=== PATIENT | female | born 1945 | race Caucasian/White ===

== ENCOUNTER → 2019-01-26 | Outpatient (REF) | payer MEDICARE, OTHER | LOC: EEVIPCON 15:43 → M LAB REF 15:43 | PROVIDERS: ATTEND Nurse Practitioner Family | DX: L08.9 Local infection of the skin and subcutaneous tissue, unspecified (principal) ==

== ENCOUNTER 2019-09-22 15:58 | Emergency (ER) | payer MEDICARE, OTHER ==
[~2019-09-22] VITALS: Ht 162.6 cm; Wt 75.6 kg
[2019-09-22] MEDS ORDERED: SERT-138 (16:07)
[2019-09-22] MEDS ORDERED: ATOR1TAB21 (16:07)
[2019-09-22] MEDS ORDERED: FOSI40TA3 (16:07)
[2019-09-22] MEDS ORDERED: SYNT100T (16:07)
[2019-09-22] MEDS ORDERED: NS 500 ML IV ONE (17:30)
[2019-09-22] MEDS ORDERED: ISOVUE-370 76% 100ML VIAL (Q9967) As Ordered ONE (17:41)
--- NOTE | 2019-09-22 18:33 | REPVR ---
PROCEDURE INFORMATION: Exam: CT Angiography Chest With Contrast Exam date and time: 09/22/2019 5:46 PM Age: 74 years old Clinical indication: Shortness of breath; Additional info: SOB TECHNIQUE: Imaging protocol: Computed tomographic angiography of the chest with intravenous contrast. 3D rendering: MIP and/or 3D reconstructed images were created by the technologist. Radiation optimization: All CT scans at this facility use at least one of these dose optimization techniques: automated exposure control; mA and/or kV adjustment per patient size (includes targeted exams where dose is matched to clinical indication); or iterative reconstruction. Contrast material: ISOVUE 370; Contrast volume: 75 ml; Contrast route: IV; COMPARISON: CR CHEST 2 VIEW 09/22/2019 9:55 AM FINDINGS: Pulmonary arteries: Limited evaluation of the distal pulmonary arterial branches due to motion artifact. No filling defect in the main pulmonary arteries or the primary or secondary order pulmonary arterial branches. The main pulmonary arterial trunk is normal in caliber. Aorta: Mild atherosclerotic change of the thoracic aorta. Lungs: Mild tree in bud opacities in the right middle lobe. Mild patchy groundglass opacity in both lower lobes. Noncalcified 2 mm right upper lobe pulmonary nodule (series 502 image 44). Noncalcified 3 mm right upper lobe pulmonary nodules (series 502 image 46). Pleural space: Unremarkable. No pneumothorax. No pleural effusion. Heart: Unremarkable. No cardiomegaly. No pericardial effusion. Gallbladder and bile ducts: There has been a cholecystectomy. Kidneys and ureters: 10 mm left renal cyst. Lymph nodes: Unremarkable. No enlarged lymph nodes. Bones/joints: Bilateral sternoclavicular joint DJD. Degenerative change of the spine. Postsurgical change of the spine. Soft tissues: Unremarkable. IMPRESSION: 1. No central pulmonary embolism. Motion artifact limits evaluation of the distal pulmonary arteries. 2. Mild right middle lobe small airways disease. 3. Mild edema or pneumonitis in the lower lobes. 4. Noncalcified 2 mm and 3 mm nodules in the right lung. Recommend comparison with any prior CT examinations that are available. If none are available, recommend followup according to Fleischner criteria. Fleischner society recommendations for followup and management of pulmonary nodules in adults detected incidentally on screening CT (2017): Less than or equal to 6 mm (solitary or multiple): Low risk patients- no followup needed. High risk patients- optional CT in 12 months. 6-8 mm nodule (solitary): Low-risk patients- CT at 6-[address] at 18-24 months. High risk patients- CT at 6-12 months, then CT at 18-24 months. 6-8 mm nodule (multiple): Low-risk patients- CT at 3-[address] at 18-24 months. High risk patients- CT at 3-6 months, then CT at 18-24 months. >8 mm (solitary): Low-risk patients- consider CT, PET/CT, or tissue sampling at 3 months. High-risk patients- same as for low-risk patients. >8mm (multiple): Low-risk patients - CT at 3-6 months, then at 18-24 months. High-risk patients - same as for low risk patients. Electronically signed by: Jenna Dickson On 09/22/2019 18:32:53 PM
[2019-09-22] MEDS ORDERED: IPRATROPIUM 0.5MG/ALBUTEROL 2.5MG INH SOL UD 3ML (DUONEB)(J7620) NEB ONE (19:00)
[2019-09-22] MEDS ORDERED: LevoFLOXacin IV 750 MG in IV 1 EA IV ONE (19:00)
--- NOTE | 2019-09-22 19:00 | ED PDOC ---
Post-Departure Follow-Up dr dee fxed formal report of cta chest for fu Eunice Wagner MD Sep 22, 2019 19:00
[2019-09-22 19:05] LABS: INR 1.27; PROTHROMBIN TIME 15.6 SECONDS (11.8-14.0)
[2019-09-22 19:06] LABS: PARTIAL THROMBOPLASTIN TIME 37.5 SECONDS (25.0-38.4)
[2019-09-22 19:26] LABS: ALBUMIN 3.1 GM/DL (3.2-5.2); BILIRUBIN,DIRECT 0.4 MG/DL (0.0-0.2); BILIRUBIN,TOTAL 1.3 MG/DL (0.2-1.0); C REACTIVE PROTEIN QUANTITATIV 18.9 MG/DL (0.00-0.30); CREATININE FOR GFR 1.06 MG/DL (0.55-1.30); GLOMERULAR FILTRATION RATE 53.7 (>39); POTASSIUM SERUM 3.8 MEQ/L (3.5-5.1); TOTAL PROTEIN 6.3 GM/DL (6.4-8.2)
[2019-09-22] MEDS ORDERED: LEVA750T7 PO (22:03)
[2019-09-22] MEDS ORDERED: VENTAER INH (22:03)
[2019-09-22 22:29] VITALS: BP 131/59
--- NOTE | 2019-09-23 17:58 | ECGEPIP ---
[facility] - ED Test Date: 2019-09-22 Pat Name: TATI POPE Department: Room: - Gender: Female Feed [employer]ender: CAROLE : 1945 Requested By: RADHA JONES PA-C Order Number: [id number] Reading MD: Beau Harmon Measurements Intervals [place] Rate: 84 P: -58 CO: 123 QRS: 10 QRSD: 92 T: -11 QT: 370 QTc: 438 Interpretive Statements ECTOPIC ATRIAL RHYTHM NONSPECIFIC ST & T-WAVE ABNORMALITY BASELINE ARTIFACT AFFECTS INTERPRETATION NO PRIORS FOR COMPARISON Electronically Signed on 09-23-2019 17:57:47 EST by Beau Harmon
== END 2019-09-22 22:18 | disposition home or self-care (01) ==
LOC: M ED 15:58
DX: J18.9 Pneumonia, unspecified organism (principal); J20.9 Acute bronchitis, unspecified; J81.0 Acute pulmonary edema; R91.8 Other nonspecific abnormal finding of lung field; R94.31 Abnormal electrocardiogram [ECG] [EKG]; I10 Essential (primary) hypertension; E78.5 Hyperlipidemia, unspecified; E03.9 Hypothyroidism, unspecified; F41.9 Anxiety disorder, unspecified; Z79.51 Long term (current) use of inhaled steroids; Z79.899 Other long term (current) drug therapy
CPT/HCPCS: 36415; 71046; 71275; 80047; 80048; 80076; 83880; 85025; 85379; 85610; 85652; 85730; 86140; 93005; 96361; 96365; 96366; 99284; J1956; Q9967

== ENCOUNTER → 2019-09-22 | Outpatient (CLI) | payer MEDICARE, OTHER ==
[~2019-09-22] MED LIST: ATOR1TAB21; FOSI40TA3; LEVA750T7 PO; SERT-138; SYNT100T; VENTAER INH
--- NOTE | 2019-09-22 10:12 | REP ---
Clinical: Cough and shortness of breath . Comparison: None . Technique: PA and lateral. Findings: The mediastinum and cardiac silhouette are normal. The lung harris are clear and without acute consolidation, effusion, or pneumothorax. The skeletal structures are intact and normal. Impression: 1. No acute cardiopulmonary process. Electronically Signed by Liu Stratton MD 09/22/2019 10:03 A
[2019-09-22 14:53] LABS: BASO % 0.3 % (0.0-1.0); HEMATOCRIT 40.2 % (36.0-47.0); HEMOGLOBIN 13.2 g/dl (12.0-15.5); LYMPH # 0.8 10^3/uL (1.5-5.0); LYMPH % 6.6 % (24.0-44.0); MEAN CORPUSCULAR HEMOGLOBIN 31.7 pg (27.0-33.0); MEAN CORPUSCULAR HGB CONC 32.8 g/dl (32.0-36.5); MEAN CORPUSCULAR VOLUME 96.4 fl (80.0-96.0); MONO % 8.9 % (0.0-5.0); NEUTROPHILS # 9.8 10^3/uL (1.5-8.5); NEUTROPHILS % 83.7 % (36.0-66.0); PLATELET COUNT, AUTOMATED 187 10^3/uL (150-450); RED BLOOD COUNT 4.17 10^6/uL (4.00-5.40); WHITE BLOOD COUNT 11.7 10^3/uL (4.0-10.0)
== END ==
LOC: M WUC 09:44
PROVIDERS: ATTEND Physician Assistant
DX: J20.9 Acute bronchitis, unspecified (principal); R06.02 Shortness of breath

== ENCOUNTER → 2019-10-19 | Outpatient (REF) | payer MEDICARE, OTHER | LOC: M LAB REF 16:12 | PROVIDERS: ATTEND Internal Medicine | DX: J18.1 Lobar pneumonia, unspecified organism (principal) ==

== ENCOUNTER → 2020-07-10 | Outpatient (REF) | payer MEDICARE, OTHER | LOC: M LAB REF 09:48 | PROVIDERS: ATTEND Radiology Diagnostic Radiology | DX: N60.32 Fibrosclerosis of left breast (principal) ==

== ENCOUNTER → 2021-01-08 | Outpatient (CLI) | payer MEDICARE, OTHER ==
--- NOTE | 2021-01-08 14:53 | REP ---
INDICATION: 6 MO F/U,RT BREAST LESION. COMPARISON: 07/10/2020 TECHNIQUE: Ultrasonographic images over a previous biopsy or site were obtained. FINDINGS: A surgical biopsy clip is noted. There are no abnormalities. IMPRESSION: ACR category 2. <Electronically signed by Jamison Frazier > 01/08/21 1026
== END ==
LOC: M WHC 08:54
PROVIDERS: ATTEND Internal Medicine
DX: R92.2 Inconclusive mammogram (principal)

== ENCOUNTER → 2021-02-27 | Outpatient (CLI) | payer MEDICARE, OTHER ==
[~2021-02-27] MED LIST changes: +ISOVUE-370 76% 100ML VIAL ONE
--- NOTE | 2021-02-27 12:02 | REP ---
INDICATION: F/U PULMONARY NODULES. COMPARISON: 08/29/2020, 09/22/2019 TECHNIQUE: A bolus of 75 mL Isovue 370 scanning through the chest with coronal and sagittal reconstructions. FINDINGS: The right lower lobe in the as ago esophageal recess is the ill-defined patchy density without nodules as on the previous study in August. 2 mm nodule the lateral basal segment right lower lobe on image 66 is unchanged few other scattered tiny nodules in the 2-3 mm range in both lungs again seen no new nodules, pleural thickening, pleural effusion, pleural based mass, acute infiltrate or pneumothorax/pneumomediastinum. The heart is not enlarged. There is no pericardial thickening or effusion. The aorta is without aneurysm or dissection and has some calcifications the arch. Main, right and left pulmonary arteries in the mediastinum are without filling defects. No pathologic sized mediastinal, hilar, axillary or supraclavicular adenopathy. Sternum manubrium, clavicles, humeral heads, scapulae and visualized ribs were without acute finding. The C6 through T1 anterior cervical fusion with the plate and screw hardware again seen and intact. Some minimal thoracic spondylosis with marginal osteophytes and no acute compression deformity. Appearance is unchanged. Upper abdomen the hiatal hernia. Portions of liver, spleen, adrenal glands, pancreas and upper poles kidneys unremarkable. Prior cholecystectomy. IMPRESSION: 1. Stable the CT with a few scattered tiny lung nodules. I do not see a 4 mm nodule discretely on today's study in the lower lobe on the right. There are bilateral 2-3 mm scattered nodules unchanged. 2. Heart, mediastinal structures, bony thorax and upper abdominal structures visible without acute abnormality. Stable exam. <Electronically signed by Simone Nicolas > 02/27/21 [id number]
== END ==
LOC: M PLAIMG 10:41
PROVIDERS: ATTEND Internal Medicine
DX: R91.1 Solitary pulmonary nodule (principal)
CPT/HCPCS: 71260; Q9967

== ENCOUNTER → 2021-06-10 | Outpatient (CLI) | payer MEDICARE, OTHER ==
[~2021-06-10] MED LIST changes: -ISOVUE-370 76% 100ML VIAL ONE
--- NOTE | 2021-06-10 13:10 | DEXAMM ---
INDICATION: [facility] DISRD OF BONE DENSITY AND STRUCTURE. COMPARISON: 06/04/2018 as well as other prior exams. TECHNIQUE: Bone density was measured using dual-energy x-ray absorptiometry (DEXA). FINDINGS: AP SPINE L1-L4 BMD 1.358 g/cm2 Young Adult T-Score 1.5 Age Matched Z-Score 3.3. LT FEMUR, TOTAL BMD 0.936 g/cm2 Young Adult T-Score -0.6 Age Matched Z-Score 1.3. LT NECK BMD 0.852 g/cm2 Young Adult T-Score -1.3 Age Matched Z-Score 0.7. RT FEMUR, TOTAL BMD 0.905 g/cm2 Young Adult T-Score -0.8 Age Matched Z-Score 1.1. RT NECK BMD 0.822 g/cm2 Young Adult T-Score -1.6 Age Matched Z-Score 0.5. IMPRESSION: There is normal bone density of the spine. There is low bone density of the left hip. There is low bone density of the right hip. The density of the spine has increased 5.5% since the initial exam on 07/22/2001. The density of the spine decreased 1.2% since most recent exam on 06/04/2018. The density of the left hip has decreased 20.9% since initial exam on 07/22/2001. The density of the left hip has decreased 4.3% since most recent exam on 06/04/2018. The density of the right hip has decreased 19.4% since the initial exam on 07/22/2001. The density of the right hip has decreased 6.0% since the most recent exam on 06/04/2018. FOLLOW-UP: Recommendation for the next bone density exam: 2 years. <Electronically signed by Jose Antonio Dhaliwal > 06/10/21 [id number]
--- NOTE | 2021-06-10 13:35 | REPMRS ---
Patient History The patient states she has not had a clinical breast exam in over a year. Family history of breast cancer at age 53 in mother. Took hormonal contraceptives for 1 year. Took estrogen for 8 years. Tomosynthesis is performed. [place] breast density is b. [facility] lifetime risk of breast cancer 5.0%. Patient states no breast complaints today. Patient has signed MRS History Sheet. Digital Woman Screen Mammo: June 10, 2021 - Exam #: [id number] Bilateral CC and MLO view(s) were taken. Technologist: Danette Hoffmann, Technologist Prior study comparison: June 03, 2017, digital woman screen mammo performed at [facility]. May 23, 2016, digital woman screen mammo performed at [facility]. FINDINGS: There are scattered fibroglandular densities. There has been no change in the appearance of the mammogram from the prior studies. There is a mild amount of residual fibroglandular tissue which is fairly symmetric. There is no interval development of dominant mass, architectural distortion, or clustered microcalcification suggestive of malignancy. Assessment: BI-RADS/ACR category 1 mammogram. Negative Mammogram. Recommendation Routine screening mammogram in 1 year (for women over age 40). This mammogram was interpreted with the aid of an FDA-approved computer-aided dectection system. Electronically Signed By: Jamison Frazier DO 06/10/21 [id number]
== END ==
LOC: M WHC 10:58
PROVIDERS: ATTEND Internal Medicine
DX: Z12.31 Encounter for screening mammogram for malignant neoplasm of breast (principal); M85.89 Other specified disorders of bone density and structure, multiple sites

== ENCOUNTER → 2021-09-25 | Outpatient (CLI) | payer MEDICARE, OTHER ==
[~2021-09-25] MED LIST changes: -FOSI40TA3; +FOSI40TA59; +ISOVUE-370 76% 100ML VIAL As Ordered ONE
== END ==
LOC: M RAD 11:04
PROVIDERS: ATTEND Internal Medicine
DX: R91.1 Solitary pulmonary nodule (principal)
CPT/HCPCS: 71260; Q9967

== ENCOUNTER → 2022-06-11 | Outpatient (CLI) | payer MEDICARE, OTHER ==
[~2022-06-11] MED LIST changes: -ISOVUE-370 76% 100ML VIAL As Ordered ONE
== END ==
LOC: M WHC 11:09
PROVIDERS: ATTEND Internal Medicine
DX: Z12.31 Encounter for screening mammogram for malignant neoplasm of breast (principal)

== ENCOUNTER → 2023-06-18 | Outpatient (CLI) | payer MEDICARE, OTHER | LOC: M WHC 13:30 | PROVIDERS: ATTEND Internal Medicine | DX: Z12.31 Encounter for screening mammogram for malignant neoplasm of breast (principal) ==

== ENCOUNTER → 2024-06-20 | Outpatient (CLI) | payer MEDICARE, OTHER | LOC: M WHC 14:22 | PROVIDERS: ATTEND Internal Medicine | DX: Z12.31 Encounter for screening mammogram for malignant neoplasm of breast (principal); M81.0 Age-related osteoporosis without current pathological fracture ==

== ENCOUNTER → 2024-08-18 | Outpatient (CLI) | payer MEDICARE, OTHER | LOC: M SOG 07:52 | PROVIDERS: ATTEND Physician Assistant | DX: M25.562 Pain in left knee (principal) ==

== ENCOUNTER → 2024-10-06 | Outpatient (CLI) | payer MEDICARE, OTHER | LOC: M SOG 11:11 | PROVIDERS: ATTEND Orthopaedic Surgery | DX: M17.12 Unilateral primary osteoarthritis, left knee (principal) ==

== ENCOUNTER → 2024-10-10 | Outpatient (CLI) | payer MEDICARE, OTHER ==
[2024-10-10 12:44] LABS: BASO % 0.5 % (0.0-1.0); EOS # 0.1 10^3/uL (0.0-0.5); EOS % 1.6 % (0.0-3.0); HEMATOCRIT 38.7 % (36.0-47.0); HEMOGLOBIN 12.4 g/dl (12.0-15.5); LYMPH % 12.9 % (24.0-44.0); MEAN CORPUSCULAR HEMOGLOBIN 31.4 pg (27.0-33.0); MONO # 0.5 10^3/uL (0.0-0.8); MONO % 6.9 % (2.0-8.0); NEUTROPHILS % 77.7 % (36.0-66.0); PLATELET COUNT, AUTOMATED 463 10^3/uL (150-450); RED BLOOD COUNT 3.95 10^6/uL (4.00-5.40); WHITE BLOOD COUNT 7.7 10^3/uL (4.0-10.0)
[2024-10-10 12:54] LABS: PROTHROMBIN TIME 13.4 SECONDS (12.5-14.5)
[2024-10-10 13:23] LABS: ALBUMIN 3.1 G/DL (3.2-5.2); ALKALINE PHOSPHATASE 81 U/L (35-104); ALT/SGPT 13 U/L (7.0-40); AST/SGOT 11 U/L (<34); BILIRUBIN,TOTAL 0.7 MG/DL (0.3-1.2); BLOOD UREA NITROGEN 18 MG/DL (9-23); CALCIUM LEVEL 9.2 MG/DL (8.3-10.6); CARBON DIOXIDE LEVEL 30 MMOL/L (20-31); CHLORIDE LEVEL 104 MMOL/L (98-107); CREATININE FOR GFR 0.88 MG/DL (0.55-1.30); GLOMERULAR FILTRATION RATE > 60.0 (>32); GLUCOSE, FASTING 128 MG/DL (74-106); POTASSIUM SERUM 4.5 MMOL/L (3.5-5.1); SODIUM LEVEL 139 MMOL/L (136-145); TOTAL PROTEIN 6.5 G/DL (5.7-8.2)
[2024-10-10 13:25] LABS: TOTAL 25(OH) VITAMIN D 73.7 NG/ML (20.0-100.0)
[2024-10-10 13:35] LABS: HEMOGLOBIN A1c 5.9 % (4.0-6.0)
== END ==
LOC: M PLALAB 10:11
PROVIDERS: ATTEND Orthopaedic Surgery
DX: M17.12 Unilateral primary osteoarthritis, left knee (principal); Z79.899 Other long term (current) drug therapy

== ENCOUNTER → 2024-11-30 | Outpatient (CLI) | payer MEDICARE, OTHER | LOC: M RAD 11:11 | PROVIDERS: ATTEND Orthopaedic Surgery | DX: M17.12 Unilateral primary osteoarthritis, left knee (principal) ==

== ENCOUNTER 2024-12-19 11:24 | Observation (INO) | payer MEDICARE, OTHER ==
[~2024-12-19] VITALS: Ht 160 cm; Wt 77.2 kg
[2024-12-19] VITALS (8 sets, daily range): BP systolic 125–140; BP diastolic 56–68; TEMP 97–98; O2SAT 92–97
[2024-12-19] MEDS: REK 50ML SYRINGE IA ONE (06:00)
[~2024-12-19 11:24] MED LIST changes: +ACETAMINOPHEN 1000MG/100ML IV BAG As Ordered ONE; +ATOR40TA75 PO; +CALC500C16 PO; -FOSI40TA59; +FOSI40TA59 PO; +LIDOCAINE 2% 100MG/5ML SDV (FOR ANES.) As Ordered ONE; +METF-838 PO; +ONDANSETRON 4MG 2ML VIAL As Ordered ONE; +PRES1CAP PO; +REK 50ML SYRINGE IA ONE; +SERT50TA29 PO; +SYNT88TA2 PO; +dexmedeTOMIDine (4MCG/ML)200MCG/50ML BTL (PRECEDEX) As Ordered ONE; +fentaNYL 100 MCG/2 ML INJECTION As Ordered ONE; +propofoL 200 MG/20 ML VIAL As Ordered ONE
[2024-12-19] MEDS: LR 1,000 ML IV SCH ×2 (12:30→15:25)
[2024-12-19] MEDS: TRANEXAMIC ACID INJection 1,000 MG in NS 100 ML IV ONE (13:00)
[2024-12-19] MEDS: ceFAZolin SOD 2 GM IV ONCE IV ONE (13:07)
[2024-12-19] MEDS: TRANEXAMIC ACID 100 MG/ML 10ML VIAL As Ordered ONE (13:23)
[2024-12-19] MEDS ORDERED: ePHEDrine SULFATE 25 MG/5 ML(5MG/ML) SYRINGE As Ordered ONE (13:48)
[2024-12-19] MEDS ORDERED: ONDANSETRON 4MG 2ML VIAL IV PRN (15:20)
[2024-12-19] MEDS ORDERED: SENNA 8.6 MG TAB PO PRN (15:20)
[2024-12-19] MEDS ORDERED: oxyCODONE 5MG TAB PO PRN ×2 (15:20)
[2024-12-19] MEDS ORDERED: fentaNYL 100 MCG/2 ML INJECTION IV PRN (15:25)
[2024-12-19] MEDS: oxyCODONE 5MG TAB PO PRN (16:06)
[2024-12-19] MEDS: HYDROMORPHONE HCL 0.5 MG/ 0.5 ML SYRINGE IV PRN (16:07)
[2024-12-19] MEDS: ONDANSETRON 4MG 2ML VIAL IV PRN (16:38)
[2024-12-19] MEDS ORDERED: HOME MED LIST COMPLETE! XX SCH (18:00)
[2024-12-19] MEDS: ACETAMINOPHEN 325 MG TAB PO SCH (18:52)
[2024-12-19] MEDS: ASPIRIN 81MG ENTERIC TABLET PO SCH (20:01)
[2024-12-19] MEDS: DOCUSATE SODIUM 100MG CAPSULE PO SCH (20:02)
[2024-12-19] MEDS: ceFAZolin SODIUM 2 GM in DEXTROSE 5% (D5W) ADV/MINI-BAG 50 ML IV SCH (20:02)
[2024-12-20 02:00] VITALS: BP 128/59; TEMP 97.7; O2SAT 97
[2024-12-20 04:00] VITALS: BP 128/60; TEMP 97.6; O2SAT 97
[2024-12-20 05:37] LABS: HEMATOCRIT 31.8 % (36.0-47.0); HEMOGLOBIN 10.5 g/dl (12.0-15.5); MEAN CORPUSCULAR HEMOGLOBIN 32.3 pg (27.0-33.0); MEAN CORPUSCULAR VOLUME 97.8 fl (80.0-96.0); PLATELET COUNT, AUTOMATED 196 10^3/uL (150-450); RED BLOOD COUNT 3.25 10^6/uL (4.00-5.40); WHITE BLOOD COUNT 11.1 10^3/uL (4.0-10.0)
[2024-12-20 06:10] LABS: BILIRUBIN,TOTAL 0.9 MG/DL (0.3-1.2); CALCIUM LEVEL 8.5 MG/DL (8.3-10.6); CREATININE FOR GFR 0.87 MG/DL (0.55-1.30); GLOMERULAR FILTRATION RATE 66.9 (>32); POTASSIUM SERUM 4.8 MMOL/L (3.5-5.1); TOTAL PROTEIN 5.5 G/DL (5.7-8.2)
[2024-12-20 08:00] VITALS: BP 125/58; TEMP 97.5; O2SAT 96
[2024-12-20 08:30] VITALS: O2SAT 96
[2024-12-20] MEDS: FERROUS SULFATE 325MG TAB PO SCH (08:55)
[2024-12-20] MEDS: CEFDINIR 300 MG CAP PO SCH (08:55)
[2024-12-20] MEDS: ASCORBIC ACID 500 MG TAB PO SCH (08:56)
[2024-12-20] MEDS ORDERED: CEFD300CAP PO (09:07)
[2024-12-20] MEDS ORDERED: ASPI81TAEC PO (09:07)
[2024-12-20] MEDS ORDERED: ACET32TAB PO (09:07)
[2024-12-20] MEDS ORDERED: OXYC1TAB23 PO (09:07)
== END 2024-12-20 12:25 | disposition home health service (06) ==
LOC: M SDC 11:24 → EEVIPCON 11:25 → M RR INP 11:25 → M MS5PR 16:59
PROVIDERS: ADMIT Orthopaedic Surgery; ATTEND Orthopaedic Surgery
DX: M17.12 Unilateral primary osteoarthritis, left knee (principal); I10 Essential (primary) hypertension; E78.5 Hyperlipidemia, unspecified; E03.9 Hypothyroidism, unspecified; F41.9 Anxiety disorder, unspecified; F32.A Depression, unspecified; Z79.899 Other long term (current) drug therapy
CPT/HCPCS: 27447; 36415; 73560; 80053; 85027; 88300; 96365; 96366; 97110; 97116; 97161; 97165; 97530; 97535; C1776; G0378; J0131; J0690; J1100; J1171; J2405; J3010; S2900

== ENCOUNTER → 2025-06-21 | Outpatient (CLI) | payer MEDICARE, OTHER ==
[~2025-06-21] MED LIST changes: +ACET32TAB PO; -ACETAMINOPHEN 1000MG/100ML IV BAG As Ordered ONE; +ASPI81TAEC PO; +CEFD300CAP PO; -LIDOCAINE 2% 100MG/5ML SDV (FOR ANES.) As Ordered ONE; -ONDANSETRON 4MG 2ML VIAL As Ordered ONE; +OXYC1TAB23 PO; -REK 50ML SYRINGE IA ONE; -dexmedeTOMIDine (4MCG/ML)200MCG/50ML BTL (PRECEDEX) As Ordered ONE; -fentaNYL 100 MCG/2 ML INJECTION As Ordered ONE; -propofoL 200 MG/20 ML VIAL As Ordered ONE
== END ==
LOC: M WHC 11:57
PROVIDERS: ATTEND Internal Medicine
DX: Z12.31 Encounter for screening mammogram for malignant neoplasm of breast (principal); R92.323 Mammographic fibroglandular density, bilateral breasts

== ENCOUNTER → 2025-07-20 | Outpatient (REF) | payer MEDICARE, OTHER | LOC: M PLALAB 11:38 | PROVIDERS: ATTEND Specialist | DX: Z12.72 Encounter for screening for malignant neoplasm of vagina (principal) | CPT/HCPCS: 87624; G0123 ==